=== PATIENT | male | born 1985 | race Caucasian/White ===

== ENCOUNTER 2017-05-10 16:22 | Emergency (ER) | payer BC, OTHER ==
[~2017-05-10] VITALS: Ht 188 cm; Wt 79.5 kg
[2017-05-10 17:25] VITALS: BP 127/80
--- NOTE | 2017-05-10 17:35 | NUR ---
PATIENT PRESENTS TO ED WITH c/o right forearm lacertion while cleaning animal cages----recent last tetanus <1 yr . DENIES N/V/D; SKIN IS PINK/WARM/DRY; AAOX4 WITH EVEN AND STEADY GAIT; LUNGS CLEAR BL; HR EVEN AND REGULAR; PT DENIES ANY FEVER, CP, SOB, OR COUGH AT THIS TIME; PATIENT STATES PAIN OF 4/10 AT THIS TIME; VSS; PATIENT POSITIONED FOR COMFORT; HOB ELEVATED; BEDRAILS UP X2; BED DOWN. ER MD MADE AWARE OF PT STATUS.
[2017-05-10] MEDS ORDERED: LIDOCAINE 1% ***ER ONLY *** 10 MG/ML VIAL INJ ONE (17:40)
[2017-05-10] MEDS ORDERED: IBUPROFEN 800 MG TAB PO ONE (17:45)
[2017-05-10 18:18] VITALS: BP 120/80
--- NOTE | 2017-05-10 18:19 | NUR ---
Patient discharged with v/s stable. Written and verbal after care instructions given and explained. Patient verbalized understanding. Ambulatory with steady gait. All questions addressed prior to discharge. Advised to follow up with PMD.
[2017-05-10] MEDS ORDERED: BACITRACIN OINT 500 UNITS/GM PKT TP ONE (18:21)
== END 2017-05-10 18:19 | disposition home or self-care (01) ==
LOC: MED 16:22
DX: S51.811A Laceration without foreign body of right forearm, initial encounter (principal); Z88.1 Allergy status to other antibiotic agents; W19.XXXA Unspecified fall, initial encounter; Y93.89 Activity, other specified; Y92.89 Other specified places as the place of occurrence of the external cause; Y99.8 Other external cause status
CPT/HCPCS: 12001; 73090; 99284; J2001; Q0092

== ENCOUNTER 2017-05-19 15:29 | Emergency (ER) | payer BC ==
[~2017-05-19] VITALS: Ht 188 cm; Wt 80.1 kg
[2017-05-19 16:16] VITALS: BP 140/90
--- NOTE | 2017-05-19 16:20 | NUR ---
AMBULATES BACK TO THE LOBBY
--- NOTE | 2017-05-19 18:00 | NUR ---
PATIENT TAKEN TO FT #2
--- NOTE | 2017-05-19 18:35 | NUR ---
RECHECK RT FOREARM STITCHES REMOVAL; [facility] ON 05/10/17 D/T REBAR PENETRATION HX; DENIES. DENIES N/V/D; SKIN IS PINK/WARM/DRY; AAOX4 WITH EVEN AND STEADY GAIT; LUNGS CLEAR BL; HR EVEN AND REGULAR; PT DENIES ANY FEVER, CP, SOB, OR COUGH AT THIS TIME; PATIENT STATES PAIN OF 0/10 AT THIS TIME; VSS; PATIENT POSITIONED FOR COMFORT; HOB ELEVATED; BEDRAILS UP X2; BED DOWN. ER MD MADE AWARE OF PT STATUS.
[2017-05-19] MEDS ORDERED: BACITRACIN OINT 500 UNITS/GM PKT TP ONE (18:44)
[2017-05-19 19:03] VITALS: BP 130/80
== END 2017-05-19 19:00 | disposition home or self-care (01) ==
LOC: MED 15:29
DX: S51.811D Laceration without foreign body of right forearm, subsequent encounter (principal); Z88.1 Allergy status to other antibiotic agents; X58.XXXD Exposure to other specified factors, subsequent encounter
CPT/HCPCS: 99281